=== PATIENT | female | born 1960 | race American Indian/Alaskan Native ===

== ENCOUNTER 2017-02-18 11:32 | Emergency (ER) | payer MEDICAID ==
--- NOTE | 2017-02-18 12:22 | CR ---
CLINICAL HISTORY: 56-year-old female with chest pain and shortness of breath reported to have "normal chest" May 2015. INTERPRETATION: No acute new cardiopulmonary abnormality identified in the interval since May 2015. Normal cardiac silhouette without cephalization of vascular flow, signs of alveolar edema or dependen t pleural effusion. No lung mass, hilar lymphadenopathy or focal lobar pneumonia. No atelectasis/collapse. No pneumothorax.
[2017-02-18 12:32] LABS: CHLORIDE,CL 102 mmol/L (101-111); SODIUM,NA 139 mmol/L (135-145)
[2017-02-18 12:41] VITALS: BP 122/74
--- NOTE | 2017-02-18 12:41 | EDM.PDOC ---
ED HPI GENERAL MEDICAL PROBLEM - General Chief Complaint: Chest Pain Stated Complaint: TROUBLE BREATHING, CHEST HURTS Time Seen by Provider: 02/18/17 12:05 Source of Information: Reports: Patient, RN, RN Notes Reviewed History Limitations: Reports: No Limitations - History of Present Illness INITIAL COMMENTS - FREE TEXT/NARRATIVE: Pt presents to the ER with c/o chest pain. She states the pain began last evening, and is not present at this time. She states the pain was a sternal pain , pressure, like someone was sitting on her chest. She admits to diarrhea last evening, sob with the chest pain, and chills last evening. She states when she rolled over onto her right side she would feel palpitations in her chest. She states she could possibly be feeling more depressed lately. She states she has been closing her curtains and sleeping a lot lately. She denies nausea or vomiting or recent fever. Onset: Sudden Onset Date: 02/17/17 Location: Reports: Chest Quality: Reports: Pressure Severity: Moderate Improves with: Reports: None Worsens with: Reports: None Associated Symptoms: Reports: Chest Pain, Cough, Fever/Chills, Loss of Appetite , Shortness of Breath - Related Data Allergies Allergy/AdvReac Type Severity Reaction Status Date / Time Penicillins Allergy rash and Verified 02/18/17 11:51 red all over venom-honey bee Allergy Airway Verified 05/31/15 00:53 [bee venom (honey bee)] Tightness Home Meds: Home Meds DULoxetine [Cymbalta] 60 mg PO DAILY 05/24/15 [History] Omeprazole [Omeprazole] 20 mg PO DAILY 05/24/15 [History] Oxybutynin Chloride [Ditropan Xl] 10 mg PO BEDTIME 05/24/15 [History] EPINEPHrine [Epipen] 1 dose SUBCUT ASDIRECTED PRN 05/31/15 [History] oxyCODONE HCl/Acetaminophen [Endocet 10-325 mg Tablet] 1 each PO BID 02/18/17 [ History] Past Medical History HEENT History: Reports: Impaired Vision, Other (See Below) Other HEENT History: wears glasses Cardiovascular History: Reports: High Cholesterol Respiratory History: Reports: Bronchitis, Recurrent, TB Gastrointestinal History: Reports: GERD Genitourinary History: Reports: Other (See Below) Other Genitourinary History: overactive bladder Musculoskeletal History: Reports: Arthritis, Other (See Below) Other Musculoskeletal History: scoliosis. Neck and spine pain. Neurological History: Reports: None Psychiatric History: Reports: Depression Endocrine/Metabolic History: Reports: None Immunologic History: Reports: None Oncologic (Cancer) History: Reports: None - Past Surgical History HEENT Surgical History: Reports: Other (See Below) Other HEENT Surgeries/Procedures: right ear drum Female Surgical History: Reports: Hysterectomy Social & Family History - Family History Family Medical History: Noncontributory - Tobacco Use Smoking Status *Q: Current Every Day Smoker Years of Tobacco use: 20 Packs/Tins Daily: 0.1 - Recreational Drug Use Recreational Drug Use: No ED ROS GENERAL - Review of Systems Review Of Systems: ROS reveals no pertinent complaints other than HPI. ED EXAM, GENERAL - Physical Exam Exam: See Below Exam Limited By: No Limitations General Appearance: Alert, WD/WN, No Apparent Distress Eye Exam: Bilateral Eye: EOMI, Normal Inspection Ears: Normal External Exam, Hearing Grossly Normal Nose: Normal Inspection Throat/Mouth: Normal Inspection, Normal Voice, No Airway Compromise Head: Atraumatic, Normocephalic Neck: Normal Inspection, Supple, Non-Tender, Full Range of Motion Respiratory/Chest: No Respiratory Distress, Lungs Clear, Normal Breath Sounds, No Accessory Muscle Use, Chest Non-Tender Cardiovascular: Normal Peripheral Pulses, Regular Rate, Rhythm, No Edema, No Gallop, No JVD, No Murmur, No Rub Peripheral Pulses: 2+: Radial (L), Radial (R) GI/Abdominal: Normal Bowel Sounds, Soft, Non-Tender, No Organomegaly, No Distention, No Abnormal Bruit, No Mass (Female) Exam: Deferred Rectal (Female) Exam: Deferred Back Exam: Normal Inspection, Full Range of Motion Extremities: Normal Inspection, Normal Range of Motion, Non-Tender, No Pedal Edema, Normal Capillary Refill Neurological: Alert, Oriented, Normal Cognition, No Motor/Sensory Deficits Psychiatric: Normal Affect, Normal Mood Skin Exam: Warm, Dry, Intact, Normal Color, No Rash Lymphatic: No Adenopathy EKG INTERPRETATION EKG Date: 02/18/17 Time: 11:42 Rhythm: NSR Rate (Beats/Min): 81 [place]: Normal P-Wave: Present QRS: Normal ST-T: Normal QT: Normal Comparison: No Change Course - Vital Signs Last Recorded V/S: Last Vital Signs Temp 98.4 F 02/18/17 11:37 Pulse 84 02/18/17 11:37 Resp 18 02/18/17 11:37 BP 122/74 02/18/17 11:37 Pulse Ox 97 02/18/17 11:37 - Orders/Labs/Meds Orders: Active Orders 24 hr Category Date Time Status EKG Documentation Completion [RC] URGENT Care 02/18/17 11:54 Active Labs: Laboratory Tests 02/18/17 02/18/17 02/18/17 Range/Units 12:04 12:04 12:04 WBC 11.0 H (5.0-10.0) 10^3/uL RBC 5.02 (4.2-5.4) 10^6/uL Hgb 14.6 (12.0-16.0) g/dL Hct 44.8 (37.0-47.0) % MCV 89.2 (80-100) fL MCH 29.1 (27.0-34.0) pg MCHC 32.6 L (33.0-35.0) g/dL Plt Count 245 (150-450) 10^3/uL Neut % (Auto) 64.5 (42.2-75.2) % Lymph % (Auto) 27.8 (20.5-50.1) % [place] % (Auto) 6.3 (2-8) % Eos % (Auto) 1.1 (1.0-3.0) % Baso % (Auto) 0.3 (0.0-1.0) % D-Dimer, Quantitative < 100 (0-400) ng/mL Sodium 139 (135-145) mmol/L Potassium 3.8 (3.6-5.0) mmol/L Chloride 102 (101-111) mmol/L Carbon Dioxide 26.0 (21.0-31.0) mmol/L Anion Gap 14.8 BUN 8 (7-18) mg/dL Creatinine 0.6 (0.6-1.3) mg/dL Est Cr Clr Drug Dosing 89.33 mL/min Estimated GFR (MDRD) > 60 BUN/Creatinine Ratio 13.33 Glucose 115 H (74-105) mg/dL Calcium 9.5 (8.4-10.2) mg/dl Total Bilirubin 0.9 (0.2-1.0) mg/dL AST 22 (10-42) IU/L ALT 17 (10-60) IU/L Alkaline Phosphatase 81 (42-121) IU/L Troponin I < 0.02 (0.00-0.02) ng/ml Total Protein 7.4 (6.7-8.2) g/dl Albumin 3.9 (3.2-5.5) g/dl Globulin 3.5 Albumin/Globulin Ratio 1.11 - Radiology Interpretation Free Text/Narrative:: chest xray: no acute findings See rad report Departure - Departure Time of Disposition: 13:30 Disposition: Home, Self-Care 01 Condition: Good Clinical Impression: Non-cardiac chest pain, Anxiety Depression Qualifiers: Depression Type: unspecified Qualified Code(s): F32.9 - Major depressive disorder, single episode, unspecified Instructions: Panic Attacks, [id number], Nonspecific Chest Pain, [id number] Referrals: Hemalatha Zimmerman MD [Primary Care Provider] - Forms: ED Department Discharge Additional Instructions: Follow up with Dr. Zimmerman this week. Make an appointment with the [facility] [place] for counseling with Anxiety and depression. Continue taking home medications as directed.
--- NOTE | 2017-02-21 14:03 | EKG ---
02/18/2017 - DAVID LEHMAN MIRTHA - FINDINGS: This 12-lead EKG shows a normal sinus rhythm with ventricular rate of 81. Normal axis and intervals. No acute ST segment or T-wave changes. [facility] /[id number]
== END 2017-02-18 13:35 | disposition home or self-care (01) ==
LOC: DL.ED 11:32
DX: R07.89 Other chest pain (principal); F41.9 Anxiety disorder, unspecified; F32.9 Major depressive disorder, single episode, unspecified; E78.00 Pure hypercholesterolemia, unspecified; K21.9 Gastro-esophageal reflux disease without esophagitis; F17.210 Nicotine dependence, cigarettes, uncomplicated; Z79.899 Other long term (current) drug therapy; Z88.0 Allergy status to penicillin; Z91.030 Bee allergy status
CPT/HCPCS: 36415; 71010; 80053; 84484; 85025; 85379; 93005; 99285

== ENCOUNTER 2017-08-18 13:00 | Emergency (ER) | payer MEDICAID ==
[2017-08-18 13:52] VITALS: BP 119/76
--- NOTE | 2017-08-19 07:42 | EDM.PDOC ---
Scribed by Margaret Jesus 08/19/17 0742 for Nichelle Aggarwal NP ED HPI GENERAL MEDICAL PROBLEM - General Chief Complaint: General Stated Complaint: CHEST CONGESTION [id number] Time Seen by Provider: 08/18/17 14:30 Source of Information: Reports: Patient, RN, RN Notes Reviewed History Limitations: Reports: No Limitations - History of Present Illness INITIAL COMMENTS - FREE TEXT/NARRATIVE: Patient presents to the ER with complaint of nasal congestion and headaches for 2 days. She has green sputum and nasal discharge. She has also had fever, chills , cough, congestion, headaches, pain with coughing. No nausea, vomiting, diarrhea, chest pain or shortness of breath. Onset: Gradual Duration: Getting Worse Location: Reports: Head, Chest Quality: Reports: Ache Severity: Moderate Improves with: Reports: None Worsens with: Reports: None Associated Symptoms: Reports: No Other Symptoms - Related Data Allergies Allergy/AdvReac Type Severity Reaction Status Date / Time Penicillins Allergy rash and Verified 08/18/17 13:48 red all over venom-honey bee Allergy Airway Verified 08/18/17 13:48 [bee venom (honey bee)] Tightness Home Meds: Home Meds DULoxetine [Cymbalta] 60 mg PO DAILY 05/24/15 [History] Omeprazole 20 mg PO DAILY 05/24/15 [History] Oxybutynin Chloride [Ditropan Xl] 10 mg PO BEDTIME 05/24/15 [History] EPINEPHrine [Epipen] 1 dose SUBCUT ASDIRECTED PRN 05/31/15 [History] oxyCODONE HCl/Acetaminophen [Endocet 10-325 mg Tablet] 1 each PO BID 02/18/17 [ History] Past Medical History HEENT History: Reports: Impaired Vision, Other (See Below) Other HEENT History: wears glasses Cardiovascular History: Reports: High Cholesterol Respiratory History: Reports: Bronchitis, Recurrent, TB Gastrointestinal History: Reports: GERD Genitourinary History: Reports: Other (See Below) Other Genitourinary History: overactive bladder Musculoskeletal History: Reports: Arthritis, Other (See Below) Other Musculoskeletal History: scoliosis. Neck and spine pain. Neurological History: Reports: None Psychiatric History: Reports: Depression Endocrine/Metabolic History: Reports: None Immunologic History: Reports: None Oncologic (Cancer) History: Reports: None - Infectious Disease History Infectious Disease History: Reports: Chicken Pox - Past Surgical History HEENT Surgical History: Reports: Other (See Below) Other HEENT Surgeries/Procedures: right ear drum Female Surgical History: Reports: Hysterectomy Social & Family History - Family History Family Medical History: Noncontributory - Tobacco Use Smoking Status *Q: Current Every Day Smoker Years of Tobacco use: 2 Packs/Tins Daily: 0.1 Used Tobacco, but Quit: Yes Month/Year Tobacco Last Used: today - Caffeine Use Caffeine Use: Reports: Soda - Recreational Drug Use Recreational Drug Use: No ED ROS GENERAL - Review of Systems Review Of Systems: ROS reveals no pertinent complaints other than HPI. ED EXAM, GENERAL - Physical Exam Exam: See Below Exam Limited By: No Limitations General Appearance: Alert, WD/WN, No Apparent Distress Eye Exam: Bilateral Eye: EOMI, Normal Inspection Ears: Normal External Exam, Normal Canal, Hearing Grossly Normal, Normal TMs Nose: Normal Inspection, Normal Mucosa, No Blood Throat/Mouth: Normal Inspection, Normal Lips, Normal Teeth, Normal Gums, Normal Oropharynx, Normal Voice, No Airway Compromise Head: Atraumatic, Normocephalic Neck: Normal Inspection, Supple, Non-Tender, Full Range of Motion Respiratory/Chest: No Respiratory Distress, Lungs Clear, Normal Breath Sounds, No Accessory Muscle Use, Chest Non-Tender Cardiovascular: Normal Peripheral Pulses, Regular Rate, Rhythm, No Edema, No Gallop, No JVD, No Murmur, No Rub GI/Abdominal: Normal Bowel Sounds, Soft, Non-Tender, No Organomegaly, No Distention, No Abnormal Bruit, No Mass (Female) Exam: Deferred Rectal (Female) Exam: Deferred Back Exam: Normal Inspection, Full Range of Motion, NT Extremities: Normal Inspection, Normal Range of Motion, Non-Tender, Normal Capillary Refill, No Pedal Edema Neurological: Alert Psychiatric: Normal Affect, Normal Mood Skin Exam: Warm, Dry, Intact, Normal Color, No Rash Lymphatic: Other (+1-2 submental) Course - Vital Signs Last Recorded V/S: Last Vital Signs Temp 98.2 F 08/18/17 13:50 Pulse 95 08/18/17 13:50 Resp 18 08/18/17 13:50 BP 119/76 08/18/17 13:50 Pulse Ox 97 08/18/17 13:50 Departure - Departure Time of Disposition: 14:48 Disposition: Home, Self-Care 01 Condition: Good Clinical Impression: Viral URI - Discharge Information Instructions: Viral Respiratory Infection, [id number] Forms: ED Department Discharge Additional Instructions: RX: Flonase. RX: Tessalon perles. May use saline nasal irrigation. Use over the counter Zyrtec or Claritin or other decongestants as directed. I have read and agree with the documentation that has been completed regarding this visit. By signing this record, I attest that the documentation was completed in my physical presence and is an accurate record of the encounter.
== END 2017-08-18 14:58 | disposition home or self-care (01) ==
LOC: DL.ED 13:00
DX: J06.9 Acute upper respiratory infection, unspecified (principal); F17.210 Nicotine dependence, cigarettes, uncomplicated; Z88.0 Allergy status to penicillin; Z91.030 Bee allergy status
CPT/HCPCS: 99283

== ENCOUNTER 2019-02-24 16:54 | Emergency (ER) | payer MEDICARE, MEDICAID ==
[2019-02-24 17:03] VITALS: BP 132/82; PULSE 95
--- NOTE | 2019-02-24 17:55 | EDM.PDOC ---
Scribed by Margaret Jesus 02/24/19 3321 for Doroteo Stokes MD ED HPI GENERAL MEDICAL PROBLEM - General Chief Complaint: Skin Complaint Stated Complaint: RASH Time Seen by Provider: 02/24/19 17:02 Source of Information: Reports: Patient, RN, RN Notes Reviewed History Limitations: Reports: No Limitations - History of Present Illness INITIAL COMMENTS - FREE TEXT/NARRATIVE: Patient presents to the ER by POV of a rash for 3 weeks. C/O severe itching. Granddaughter has same symptoms. Onset: Gradual Duration: Constant Location: Reports: Generalized Quality: Reports: Other (Itch. Denies pain.) Severity: Severe Improves with: Reports: None Worsens with: Reports: None Associated Symptoms: Reports: No Other Symptoms - Related Data Allergies Allergy/AdvReac Type Severity Reaction Status Date / Time Penicillins Allergy rash and Verified 02/24/19 16:58 red all over venom-honey bee Allergy Airway Verified 02/24/19 16:58 [bee venom (honey bee)] Tightness Home Meds: Home Meds DULoxetine [Cymbalta] 60 mg PO DAILY 05/24/15 [History] Omeprazole 20 mg PO DAILY 05/24/15 [History] Oxybutynin Chloride [Ditropan Xl] 10 mg PO BEDTIME 05/24/15 [History] EPINEPHrine [Epipen] 1 dose SUBCUT ASDIRECTED PRN 05/31/15 [History] Celecoxib 100 mg PO BID 01/23/19 [History] Clotrimazole/Betamethasone Dip [Lotrisone Cream] 1 applic TOP ASDIRECTED PRN 04/12 [History] Ergocalciferol (Vitamin D2) [Vitamin D2] 50 mcg PO .Saturday01/23/19 [History] Montelukast [Singulair] 10 mg PO BEDTIME 01/23/19 [History] tiZANidine [Zanaflex] 4 mg PO TID 01/23/19 [History] traZODone HCl [Trazodone HCl] 50 mg PO BEDTIME PRN 01/23/19 [History] Docusate Calcium [Stool Softener] 240 mg PO ASDIRECTED 01/29/19 [History] Ferrous Sulfate 325 mg PO DAILY 01/29/19 [History] Past Medical History HEENT History: Reports: Impaired Vision, Other (See Below) Other HEENT History: wears glasses. UPPER PARTIAL PLATE Cardiovascular History: Reports: High Cholesterol Respiratory History: Reports: Bronchitis, Recurrent, TB Other Respiratory History: TB ACTIVE 01/2019 Gastrointestinal History: Reports: Chronic Constipation, GERD Genitourinary History: Reports: Urinary Incontinence, Other (See Below) Other Genitourinary History: overactive bladder [employer]ACH[employer]ER History: Reports: , Spontaneous Musculoskeletal History: Reports: Arthritis, Back Pain, Chronic, Fracture, Other (See Below) Other Musculoskeletal History: scoliosis. Neck and spine pain. Neurological History: Reports: Head Trauma Psychiatric History: Reports: Depression Endocrine/Metabolic History: Reports: Vitamin D Deficiency Hematologic History: Reports: Blood Transfusion(s) Immunologic History: Reports: None Oncologic (Cancer) History: Reports: None Dermatologic History: Reports: None - Infectious Disease History Infectious Disease History: Reports: Chicken Pox - Past Surgical History Head Surgeries/Procedures: Reports: None HEENT Surgical History: Reports: Oral Surgery, Other (See Below) Other HEENT Surgeries/Procedures: right ear drum. skull fx and resultant surg Cardiovascular Surgical History: Reports: None Respiratory Surgical History: Reports: None GI Surgical History: Reports: None Female Surgical History: Reports: Section, Hysterectomy Endocrine Surgical History: Reports: None Neurological Surgical History: Reports: Other (See Below) Other Neurological Surgeries/Procedures: skull fx and resultant surgery Musculoskeletal Surgical History: Reports: None Oncologic Surgical History: Reports: None Dermatological Surgical History: Reports: None Social & Family History - Family History Family Medical History: Noncontributory - Caffeine Use Caffeine Use: Reports: Soda Other Caffeine Use: AVERAGE OF 1 EVERY OTHER DAY - Living Situation & Occupation Living situation: Reports: with Family ED ROS GENERAL - Review of Systems Review Of Systems: Comprehensive ROS is negative, except as noted in HPI. ED EXAM, SKIN/RASH Exam: See Below Exam Limited By: No Limitations General Appearance: Alert, WD/WN, No Apparent Distress Eye Exam: Bilateral Eye: Normal Inspection Ears: Normal External Exam Nose: Normal Inspection, Normal Mucosa, No Blood Throat/Mouth: Normal Inspection Head: Atraumatic, Normocephalic Neck: Normal Inspection, Supple, Non-Tender, Full Range of Motion. No: Lymphadenopathy (L), Lymphadenopathy (R) Respiratory/Chest: No Respiratory Distress, Lungs Clear, Normal Breath Sounds, No Accessory Muscle Use, Chest Non-Tender Cardiovascular: Regular Rate, Rhythm Extremities: Normal Range of Motion, Non-Tender, No Pedal Edema, Normal Capillary Refill Neurological: Alert, Oriented, Normal Cognition, Normal Gait, No Motor/Sensory Deficits Psychiatric: Normal Mood Skin: Warm, Dry, Rash Location, Skin: Head, Neck, Chest, Abdomen, Back, Upper Extremity, Right, Upper Extremity, Left, Lower Extremity, Right, Lower Extremity, Left Characteristics: Patchy Associated features: Crusting, Rough Course - Vital Signs Last Recorded V/S: Last Vital Signs Temp 97.3 F 02/24/19 17:00 Pulse 95 02/24/19 17:00 Resp 16 02/24/19 17:00 BP 132/82 02/24/19 17:00 Pulse Ox 98 02/24/19 17:00 Departure - Departure Time of Disposition: 17:54 Disposition: Home, Self-Care 01 Condition: Good Clinical Impression: Scabies - Discharge Information *PRESCRIPTION DRUG MONITORING PROGRAM REVIEWED*: No *COPY OF PRESCRIPTION DRUG MONITORING REPORT IN PATIENT ISAIAS: No Instructions: Scabies, Adult Forms: ED Department Discharge Additional Instructions: Rx: Elimite Cream 5% Follow up in clinic in 5 to 7 days if not improving. I have read and agree with the documentation that has been completed regarding this visit. By signing this record, I attest that the documentation was completed in my physical presence and is an accurate record of the encounter.
== END 2019-02-24 17:50 | disposition home or self-care (01) ==
LOC: DL.ED 16:54
DX: B86 Scabies (principal); E78.00 Pure hypercholesterolemia, unspecified; K21.9 Gastro-esophageal reflux disease without esophagitis; Z88.0 Allergy status to penicillin; Z91.030 Bee allergy status; Z79.899 Other long term (current) drug therapy
CPT/HCPCS: 99282

== ENCOUNTER 2019-05-18 12:46 | Emergency (ER) | payer MEDICARE, MEDICAID ==
[2019-05-18 13:25] VITALS: BP 116/67; PULSE 101
--- NOTE | 2019-05-18 17:47 | EDM.PDOC ---
<Matteo Roman - Last Filed: 05/18/19 17:37> ED HPI GENERAL MEDICAL PROBLEM - General Chief Complaint: General Stated Complaint: COLD COUGH FEVER KIDNEYS HURT Time Seen by Provider: 05/18/19 17:37 Source of Information: Reports: Patient, RN, RN Notes Reviewed History Limitations: Reports: No Limitations - History of Present Illness INITIAL COMMENTS - FREE TEXT/NARRATIVE: Patient reports cough and fever since last Saturday. States fever last night was 103 and she took tyelnol. Temp here 100.4. C/O chest pain with cough, generalized body aches, cough with no mucous production, back pain, kidney pain. Onset Date: 05/15/19 Duration: Constant Location: Reports: Head, Generalized Quality: Reports: Ache Severity: Mild Improves with: Reports: None Worsens with: Reports: None Treatments PHYSICIAN SPECIALIST: Reports: Acetaminophen Generalized Pain Score (Numeric/FACES): 9 - Related Data Allergies Allergy/AdvReac Type Severity Reaction Status Date / Time Penicillins Allergy rash and Verified 05/18/19 13:30 red all over venom-honey bee Allergy Airway Verified 05/18/19 13:30 [bee venom (honey bee)] Tightness Home Meds: Home Meds DULoxetine [Cymbalta] 60 mg PO DAILY 05/24/15 [History] Omeprazole 20 mg PO BID 05/24/15 [History] Oxybutynin Chloride [Ditropan Xl] 10 mg PO BEDTIME 05/24/15 [History] EPINEPHrine [Epipen] 1 dose SUBCUT ASDIRECTED PRN 05/31/15 [History] Celecoxib 100 mg PO BID 01/23/19 [History] Clotrimazole/Betamethasone Dip [Lotrisone Cream] 1 applic TOP ASDIRECTED PRN 04/12 [History] Ergocalciferol (Vitamin D2) [Vitamin D2] 50 mcg PO .Saturday01/23/19 [History] Montelukast [Singulair] 10 mg PO BEDTIME 01/23/19 [History] tiZANidine [Zanaflex] 4 mg PO TID 01/23/19 [History] traZODone HCl [Trazodone HCl] 50 mg PO BEDTIME PRN 01/23/19 [History] Docusate Calcium [Stool Softener] 240 mg PO ASDIRECTED 01/29/19 [History] Past Medical History HEENT History: Reports: Impaired Vision, Other (See Below) Other HEENT History: wears glasses. 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 Neck and spine pain. Neurological History: Reports: Head Trauma Psychiatric History: Reports: Depression Endocrine/Metabolic History: Reports: Vitamin D Deficiency Hematologic History: Reports: Blood Transfusion(s) Immunologic History: Reports: None Oncologic (Cancer) History: Reports: None Dermatologic History: Reports: None - Infectious Disease History Infectious Disease History: Reports: TB - Past Surgical History Head Surgeries/Procedures: Reports: None HEENT Surgical History: Reports: Oral Surgery, Other (See Below) Other HEENT Surgeries/Procedures: right ear drum. skull fx and resultant surg Cardiovascular Surgical History: Reports: None Respiratory Surgical History: Reports: None GI Surgical History: Reports: None Female Surgical History: Reports: Section, Hysterectomy Endocrine Surgical History: Reports: None Neurological Surgical History: Reports: Other (See Below) Other Neurological Surgeries/Procedures: skull fx and resultant surgery Musculoskeletal Surgical History: Reports: None Oncologic Surgical History: Reports: None Dermatological Surgical History: Reports: None Social & Family History - Family History Family Medical History: Noncontributory - Tobacco Use Smoking Status *Q: Current Some Day Smoker Years of Tobacco use: 3 Packs/Tins Daily: 0.2 - Caffeine Use Caffeine Use: Reports: Soda Other Caffeine Use: AVERAGE OF 1 EVERY OTHER DAY - Recreational Drug Use Recreational Drug Use: No - Living Situation & Occupation Living situation: Reports: with Family ED ROS GENERAL - Review of Systems Review Of Systems: Comprehensive ROS is negative, except as noted in HPI. ED EXAM, GENERAL - Physical Exam Exam: See Below Exam Limited By: No Limitations General Appearance: Alert, WD/WN, No Apparent Distress Ears: Normal External Exam, Normal Canal, Hearing Grossly Normal, Normal TMs Ear Exam: Bilateral Ear: Auricle Normal, Canal Normal, TM normal Nose: Normal Inspection, Normal Mucosa, No Blood Throat/Mouth: Normal Inspection, Normal Lips, Normal Teeth, Normal Gums, Normal Oropharynx, Normal Voice, No Airway Compromise Head: Atraumatic, Normocephalic Neck: Normal Inspection, Supple, Non-Tender, Full Range of Motion Respiratory/Chest: No Respiratory Distress, Lungs Clear, Normal Breath Sounds, No Accessory Muscle Use, Chest Non-Tender Cardiovascular: Normal Peripheral Pulses, Regular Rate, Rhythm, No Edema, No Gallop, No JVD, No Murmur, No Rub Course - Vital Signs Last Recorded V/S: Last Vital Signs Temp 38.0 C 05/18/19 13:22 Pulse 101 H 05/18/19 13:22 Resp 20 05/18/19 13:22 BP 116/67 05/18/19 13:22 Pulse Ox 99 05/18/19 13:22 - Orders/Labs/Meds Labs: Laboratory Tests 05/18/19 Range/Units 13:53 Urine Color Yellow (YELLOW) Urine Appearance Slightly cloudy (CLEAR) Urine pH 6.5 (5.0-9.0) Ur Specific [place] 1.020 (1.005-1.030) Urine Protein Trace H (NEGATIVE) Urine Glucose (UA) Negative (NEGATIVE) Urine Ketones Negative (NEGATIVE) Urine Occult Blood Negative (NEGATIVE) Urine Nitrite Negative (NEGATIVE) Urine Bilirubin Negative (NEGATIVE) Urine Urobilinogen 1.0 (0.2-1.0) mg/dL Ur Leukocyte Esterase Negative (NEGATIVE) Urine RBC Not seen /HPF Urine WBC Not seen (0-5/HPF) /HPF Ur Epithelial Cells Rare (NOT SEEN) /HPF Urine Bacteria Not seen (0-FEW/HPF) /HPF Urine Mucus Few H (NOT SEEN) /LPF Departure - Departure Time of Disposition: 18:00 Disposition: Home, Self-Care 01 Condition: Good Clinical Impression: Influenza - Discharge Information *PRESCRIPTION DRUG MONITORING PROGRAM REVIEWED*: Not Applicable *COPY OF PRESCRIPTION DRUG MONITORING REPORT IN PATIENT ISAIAS: Not Applicable Instructions: Influenza, Adult, [id number], Pharyngitis, [id number] Forms: ED Department Discharge Additional Instructions: Rx: Tamiflu 75 mg twice daily for 5 days Influenza symptoms will take 7-10 days to resolve. Even though you tested negative for influenza, begin taking the medication Tamiflu for influenza symptoms to decrease length of illness and symptom severity. Continue to drink plenty of fluids to maintain hydration and rest when possible. Return to ER or clinic if symptoms worsen or do not improve after 10 days. Sepsis Event Note - Evaluation Sepsis Screening Result: No Definite Risk - Focused Exam Vital Signs: Vital Signs Temp Pulse Resp BP Pulse Ox 05/18/19 13:22 38.0 C 101 H 20 116/67 99 Date Exam was Performed: 05/18/19 Time Exam was Performed: 17:37 <Tino Guardado - Last Filed: 05/18/19 17:57> Course - Re-Assessments/Exams Free Text/Narrative Re-Assessment/Exam: 05/18/19 17:57 I have examined the patient. I have discussed findings and treatment plan with the PA student. I agree with the assessment and plan in the following students note. Sepsis Event Note - Focused Exam Date Exam was Performed: 05/18/19 Time Exam was Performed: 17:57
== END 2019-05-18 18:05 | disposition home or self-care (01) ==
LOC: DL.ED 12:46
DX: J11.1 Influenza due to unidentified influenza virus with other respiratory manifestations (principal); F17.210 Nicotine dependence, cigarettes, uncomplicated; K21.9 Gastro-esophageal reflux disease without esophagitis; F32.9 Major depressive disorder, single episode, unspecified; Z79.899 Other long term (current) drug therapy; Z88.0 Allergy status to penicillin; Z91.030 Bee allergy status
CPT/HCPCS: 81001; 87804; 99283

== ENCOUNTER 2019-09-28 15:21 | Emergency (ER) | payer MEDICARE, MEDICAID | END 2019-09-28 16:40 | disposition left against medical advice (07) | LOC: DL.ED 15:21 | DX: Z53.21 Procedure and treatment not carried out due to patient leaving prior to being seen by health care provider (principal) ==

== ENCOUNTER 2021-02-27 17:15 | Emergency (ER) | payer MEDICARE, MEDICAID ==
[2021-02-27] MEDS ORDERED: Sodium Chloride 0.9% 10 ML Syringe FLUSH PRN (18:11)
[2021-02-27] MEDS ORDERED: Famotidine 20 MG/2 ML SDV IVPUSH ONE (18:11)
[2021-02-27] MEDS ORDERED: GI Cocktail Oral Solution 30 ML PO ONE (18:11)
[2021-02-27] MEDS ORDERED: Ondansetron 4 MG/2 ML SDV IV ONE (18:11)
[2021-02-27] MEDS ORDERED: Sodium Chloride 0.9% 1,000 ML IV ONE (18:23)
[2021-02-27 18:56] LABS: ANION GAP 12.9 mEq/L (7-13); CHLORIDE,CL 103 mmol/L (98-107); SODIUM,NA 140 mmol/L (136-145)
--- NOTE | 2021-02-27 18:59 | EDM.PDOC ---
<Doroteo Stokes - Last Filed: 02/27/21 18:53> ED HPI GENERAL MEDICAL PROBLEM - General Chief Complaint: Abdominal Pain Stated Complaint: STOMACH PAIN Time Seen by Provider: 02/27/21 18:40 Source of Information: Reports: Patient, Old Records, RN, RN Notes Reviewed History Limitations: Reports: No Limitations - History of Present Illness INITIAL COMMENTS - FREE TEXT/NARRATIVE: Pt presents to ER by POV with c/o onset of upper abdominal pain with nausea at 1100HRS today. The pain radiates straight through to her back. Symptoms began a couple of hours after eating sausage and potatoes. Denies fever, vomiting, diarrhea, constipation, or dysuria. Hx of GERD. Admits to 30lb unintended wt loss over the last 6 months. Onset: Today, Gradual Onset Date: 02/27/21 Onset Time: 11:00 Duration: Constant Location: Reports: Abdomen Quality: Reports: Ache Severity: Severe Improves with: Reports: None Worsens with: Reports: Eating Associated Symptoms: Reports: No Other Symptoms Abdomen Pain Score (Numeric/FACES): 10 - Related Data Allergies Allergy/AdvReac Type Severity Reaction Status Date / Time Penicillins Allergy rash and Verified 02/27/21 18:32 red all over venom-honey bee Allergy Airway Verified 02/27/21 18:32 [bee venom (honey bee)] Tightness Home Meds: Home Meds DULoxetine HCl [Drizalma Sprinkle] 60 mg PO ASDIRECTED 02/27/21 [History] DULoxetine HCl [Duloxetine HCl] 60 mg PO ASDIRECTED 02/27/21 [History] Docusate Sodium [Stool Softener] 50 mg PO ASDIRECTED 02/27/21 [History] Ferrous Sulfate 325 mg PO ASDIRECTED 02/27/21 [History] Montelukast Sodium 10 mg PO ASDIRECTED 02/27/21 [History] Omeprazole 20 mg PO BID 02/27/21 [History] Oxybutynin Chloride [Ditropan Xl] 10 mg PO ASDIRECTED 02/27/21 [History] tiZANidine HCl [Tizanidine HCl] 4 mg PO TID 02/27/21 [History] Past Medical History HEENT History: Reports: Impaired Vision, Other (See Below) Other HEENT History: wears glasses. 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 Neck and spine pain. Neurological History: Reports: Head Trauma Psychiatric History: Reports: Depression Endocrine/Metabolic History: Reports: Vitamin D Deficiency Hematologic History: Reports: Blood Transfusion(s) Immunologic History: Reports: None Oncologic (Cancer) History: Reports: None Dermatologic History: Reports: None - Infectious Disease History Infectious Disease History: Reports: Chicken Pox - Past Surgical History Head Surgeries/Procedures: Reports: None HEENT Surgical History: Reports: Oral Surgery, Other (See Below) Other HEENT Surgeries/Procedures: right ear drum. skull fx and resultant surg Cardiovascular Surgical History: Reports: None Respiratory Surgical History: Reports: None GI Surgical History: Reports: None Female Surgical History: Reports: Section, Hysterectomy Endocrine Surgical History: Reports: None Neurological Surgical History: Reports: Other (See Below) Other Neurological Surgeries/Procedures: skull fx and resultant surgery Musculoskeletal Surgical History: Reports: None Oncologic Surgical History: Reports: None Dermatological Surgical History: Reports: None Social & Family History - Family History Family Medical History: No Pertinent Family History - Tobacco Use Tobacco Use Status *Q: Current Every Day Tobacco User Years of Tobacco use: 1 Packs/Tins Daily: 1 - Caffeine Use Caffeine Use: Reports: Soda Other Caffeine Use: AVERAGE OF 1 EVERY OTHER DAY - Recreational Drug Use Recreational Drug Use: No - Living Situation & Occupation Living situation: Reports: with Family ED ROS GENERAL - Review of Systems Review Of Systems: Comprehensive ROS is negative, except as noted in HPI. ED EXAM, GI/ABD - Physical Exam Exam: See Below Exam Limited By: No Limitations General Appearance: Alert, WD/WN, No Apparent Distress Eyes: Bilateral: Normal Appearance (No scleral icterus) Nose: Normal Inspection Throat/Mouth: Normal Lips, Normal Voice, No Airway Compromise Head: Atraumatic, Normocephalic Neck: Normal Inspection Respiratory/Chest: No Respiratory Distress, Lungs Clear, Normal Breath Sounds, No Accessory Muscle Use, Chest Non-Tender Cardiovascular: Regular Rate, Rhythm, No Edema GI/Abdominal Exam: Normal Bowel Sounds, Soft, Tender (Epigastric and periumbilical tenderness without peritoneal signs). No: Guarding, Rigid, Rebound Back Exam: Normal Inspection Extremities: Normal Inspection Neurological: Alert, Oriented, No Motor/Sensory Deficits Psychiatric: Normal Mood Skin Exam: Warm, Dry, Intact, Normal Color, No Rash Course - Re-Assessments/Exams Free Text/Narrative Re-Assessment/Exam: 02/27/21 18:58 Care of pt transferred to [facility] at shift change. Departure - Departure Disposition: DC/Tfer to [facility] 02 Clinical Impression: Appendicitis Qualifiers: Appendicitis type: acute appendicitis Acute appendicitis type: with localized peritonitis Appendicitis gangrene presence: unspecified whether gangrene present Appendicitis perforation presence: without perforation Appendicitis abscess presence: without abscess Qualified Code(s): K35.30 - Acute appendicitis with localized peritonitis, without perforation or gangrene - Discharge Information Forms: ED Department Discharge Sepsis Event Note (ED) - Evaluation Sepsis Screening Result: No Definite Risk <Buffy Temple - Last Filed: 02/27/21 21:57> Course - Vital Signs Last Recorded V/S: Last Vital Signs Temp 99.0 F 02/27/21 20:03 Pulse 82 02/27/21 20:30 Resp 16 02/27/21 20:03 BP 135/72 02/27/21 20:30 Pulse Ox 99 02/27/21 20:30 - Orders/Labs/Meds Orders: Active Orders 24 hr Category Date Time Status Peripheral IV Care [RC] . DIRECTED Care 02/27/21 18:11 Active Levofloxacin/Dextrose 5%-Water [Levaquin in D5W 750 MG/ Med 02/27/21 20:50 Active 150 ML] 750 mg Premix Bag 1 bag IV ONETIME Sodium Chloride 0.9% [Saline Flush] Med 02/27/21 18:11 Active 10 ml FLUSH ASDIRECTED PRN Peripheral IV Insertion Adult [OM.PC] Stat Oth 02/27/21 18:11 Ordered Medication Orders Levofloxacin/Dextrose 750 mg/ (Premix) 150 mls @ 100 mls/hr IV ONETIME ONE Stop: 02/27/21 22:19 Last Admin: 02/27/21 21:06 Dose: 100 mls/hr Documented by: SHIN Sodium Chloride (Sodium Chloride 0.9% 10 Ml Syringe) 10 ml FLUSH ASDIRECTED PRN PRN Reason: Keep Vein Open Last Admin: 02/27/21 18:42 Dose: 10 ml Documented by: [email or web address] Labs: Laboratory Tests 02/27/21 02/27/21 02/27/21 Range/Units 18:18 18:18 18:18 WBC 17.1 H (5.0-10.0) 10^3/uL RBC 5.02 (4.2-5.4) 10^6/uL Hgb 14.8 (12.0-16.0) g/dL Hct 44.9 (37.0-47.0) % MCV 89.4 (80-100) fL MCH 29.5 (27.0-34.0) pg MCHC 33.0 (33.0-35.0) g/dL Plt Count 248 (150-450) 10^3/uL Neut % (Auto) 85.2 H (42.2-75.2) % Lymph % (Auto) 8.6 L (20.5-50.1) % [place] % (Auto) 5.7 (2-8) % Eos % (Auto) 0.4 L (1.0-3.0) % Baso % (Auto) 0.1 (0.0-1.0) % Sodium 140 (136-145) mmol/L Potassium 3.9 (3.5-5.1) mmol/L Chloride 103 (98-107) mmol/L Carbon Dioxide 28 (21-32) mmol/L Anion Gap 12.9 (7-13) mEq/L BUN 11 (7-18) mg/dL Creatinine 0.79 (0.55-1.02) mg/dL Est Cr Clr Drug Dosing 64.58 mL/min Estimated GFR (MDRD) > 60 BUN/Creatinine Ratio 13.9 (No establ ref range) Glucose 144 H (70-99) mg/dL Lactic Acid 1.2 (0.4-2.0) mmol/L Calcium 9.1 (8.5-10.1) mg/dL Total Bilirubin 0.5 (0.2-1.0) mg/dL AST 15 (15-37) U/L ALT 25 (14-59) U/L Alkaline Phosphatase 112 (46-116) U/L Troponin I High Sens 6 (<=51) pg/mL Total Protein 8.0 (6.4-8.2) g/dL Albumin 3.9 (3.4-5.0) g/dL Globulin 4.1 Albumin/Globulin Ratio 1.0 Amylase 81 (25-115) U/L Lipase 98 (73-393) U/L Ethyl Alcohol < 3 (0) mg/dL SARS-CoV-2 RNA (PARIS) (NEGATIVE) 02/27/21 Range/Units 20:27 WBC (5.0-10.0) 10^3/uL RBC (4.2-5.4) 10^6/uL Hgb (12.0-16.0) g/dL Hct (37.0-47.0) % MCV (80-100) fL MCH (27.0-34.0) pg MCHC (33.0-35.0) g/dL Plt Count (150-450) 10^3/uL Neut % (Auto) (42.2-75.2) % Lymph % (Auto) (20.5-50.1) % [place] % (Auto) (2-8) % Eos % (Auto) (1.0-3.0) % Baso % (Auto) (0.0-1.0) % Sodium (136-145) mmol/L Potassium (3.5-5.1) mmol/L Chloride (98-107) mmol/L Carbon Dioxide (21-32) mmol/L Anion Gap (7-13) mEq/L BUN (7-18) mg/dL Creatinine (0.55-1.02) mg/dL Est Cr Clr Drug Dosing mL/min Estimated GFR (MDRD) BUN/Creatinine Ratio (No establ ref range) Glucose (70-99) mg/dL Lactic Acid (0.4-2.0) mmol/L Calcium (8.5-10.1) mg/dL Total Bilirubin (0.2-1.0) mg/dL AST (15-37) U/L ALT (14-59) U/L Alkaline Phosphatase (46-116) U/L Troponin I High Sens (<=51) pg/mL Total Protein (6.4-8.2) g/dL Albumin (3.4-5.0) g/dL Globulin Albumin/Globulin Ratio Amylase (25-115) U/L Lipase (73-393) U/L Ethyl Alcohol (0) mg/dL SARS-CoV-2 RNA (PARIS) Negative (NEGATIVE) Meds: Medications Generic Name Dose Route Start Last Admin Trade Name Freq PRN Reason Stop Dose Admin Levofloxacin/Dextrose 750 mg/ 150 mls @ 100 mls/hr 02/27/21 20:50 02/27/21 21:06 Premix IV 02/27/21 22:19 100 mls/hr ONETIME ONE Administration Sodium Chloride 10 ml 02/27/21 18:11 02/27/21 18:42 Sodium Chloride 0.9% 10 Ml Syringe FLUSH 10 ml ASDIRECTED PRN Administration Keep Vein Open Discontinued Medications Generic Name Dose Route Start Last Admin Trade Name Raminq PRN Reason Stop Dose Admin Al Hydroxide/Mg Hydroxide 30 ml 02/27/21 18:11 02/27/21 19:03 Gi Cocktail Oral Solution 30 Ml PO 02/27/21 18:12 30 ml ONETIME ONE Administration Famotidine 20 mg 02/27/21 18:11 02/27/21 18:37 Famotidine 20 Mg/2 Ml Sdv IVPUSH 02/27/21 18:12 20 mg ONETIME ONE Administration Hydromorphone HCl 1 mg 02/27/21 21:05 02/27/21 21:12 Hydromorphone 1 Mg/Ml Syringe IVPUSH 02/27/21 21:06 1 mg ONETIME ONE Administration Sodium Chloride 1,000 mls @ 999 mls/hr 02/27/21 18:23 02/27/21 18:27 Normal Saline IV 02/27/21 19:23 999 mls/hr .BOLUS ONE Administration Metronidazole 500 mg/ Premix 100 mls @ 100 mls/hr 02/27/21 20:50 02/27/21 21:07 IV 02/27/21 21:49 100 mls/hr ONETIME ONE Administration Iopamidol 100 ml 02/27/21 19:09 02/27/21 19:44 Iopamidol 612 Mg/Ml 100 Ml Bottle IVPUSH 02/27/21 19:10 75 ml ONETIME ONE Administration Ondansetron HCl 4 mg 02/27/21 18:11 02/27/21 18:36 Ondansetron 4 Mg/2 Ml Sdv IV 02/27/21 18:12 4 mg ONETIME ONE Administration Ondansetron HCl 4 mg 02/27/21 21:05 02/27/21 21:12 Ondansetron 4 Mg/2 Ml Sdv IVPUSH 02/27/21 21:06 4 mg ONETIME ONE Administration - Re-Assessments/Exams Free Text/Narrative Re-Assessment/Exam: [facility] accepting patient , tx via [facility] 02/27/21 20:59 Departure - Departure Time of Disposition: 21:20 Condition: Good - Discharge Information *PRESCRIPTION DRUG MONITORING PROGRAM REVIEWED*: No *COPY OF PRESCRIPTION DRUG MONITORING REPORT IN PATIENT ISAIAS: No Sepsis Event Note (ED) - Focused Exam Vital Signs: Vital Signs Temp Pulse Resp BP Pulse Ox 02/27/21 20:30 82 135/72 99 02/27/21 20:03 99.0 F 82 16 137/72 100 02/27/21 19:05 99.1 F 80 18 152/73 H 100 02/27/21 18:29 97.1 F 65 14 145/74 H 99 - My Orders Last 24 Hours: My Active Orders 02/27/21 20:50 Levofloxacin/Dextrose 5%-Water [Levaquin in D5W 750 MG/150 ML] 750 mg Premix Bag 1 bag IV ONETIME - Assessment/Plan Last 24 Hours: My Active Orders 02/27/21 20:50 Levofloxacin/Dextrose 5%-Water [Levaquin in D5W 750 MG/150 ML] 750 mg Premix Bag 1 bag IV ONETIME
[2021-02-27] MEDS ORDERED: Iopamidol 612 MG/ML 100 ML Bottle IVPUSH ONE (19:09)
[2021-02-27 20:04] VITALS: PULSE 82
--- NOTE | 2021-02-27 20:25 | CT ---
PROCEDURE INFORMATION: Exam: CT Abdomen And Pelvis With Contrast Exam date and time: 02/27/2021 7:42 PM Age: 60 years old Clinical indication: Abdominal pain; Localized; Upper; Prior surgery; Surgery date: 6+ months; Surgery type: Hysterectomy; Additional info: Upper abdominal pain wbc 17,000 TECHNIQUE: Imaging protocol: Computed tomography of the abdomen and pelvis with contrast. Radiation optimization: All CT scans at this facility use at least one of these dose optimization techniques: automated exposure control; mA and/or kV adjustment per patient size (includes targeted exams where dose is matched to clinical indication); or iterative reconstruction. Contrast material: ISOVUE 300; Contrast volume: 75 ml; Contrast route: INTRAVENOUS (IV); COMPARISON: No relevant prior studies available. FINDINGS: Lungs: The lung bases are clear. Liver: Normal. Gallbladder and bile ducts: Normal. No ductal dilation. Pancreas: Normal. No ductal dilation. Spleen: Normal. Adrenal glands: Normal. Kidneys and ureters: The right kidney is normal. Subcentimeter hypoattenuating lesion of the left kidney is too small to further characterize but most likely represents a benign cyst. There are no hydronephrosis or perinephric fluid collections involving either kidney. There is no hydroureter. Stomach and bowel: The stomach and duodenum are normal. No small bowel dilation, wall thickening, or derangement in mucosal enhancement. The colon is unremarkable. Appendix: The appendix is prominent size, 10 mm in diameter, and has mild periappendiceal fat stranding. No focal fluid or adjacent free air to suggest rupture. Intraperitoneal space: No ascites. No pneumoperitoneum. Vasculature: The abdominal aorta is normal in caliber and without evidence of dissection. Lymph nodes: No retroperitoneal or mesenteric lymphadenopathy. No yana hepatis lymphadenopathy. Urinary bladder: Bladder is adequately distended. No focal wall thickening. Right posterolateral extension of the bladder in the pelvis is compatible with pelvic floor dysfunction. Reproductive: The uterus is absent. No concerning adnexal mass or cyst. Bones/joints: No acute osseous abnormalities. Soft tissues: Unremarkable. IMPRESSION: Findings are compatible with acute appendicitis. No evidence of complication COMMENTS: 1. Consistent with the [employer]'s Incidental Findings Committee white paper (J Am George Radiol 2018): Any incidental renal lesion less than 1 cm or classified as too small to characterize, or any incidental cystic renal lesion characterized as simple-appearing, is likely benign. No follow-up imaging is recommended for these lesions per consensus recommendations based on imaging criteria.
[2021-02-27 20:40] VITALS: BP 135/72
[2021-02-27] MEDS ORDERED: metroNIDAZOLE/Normal Saline 500 MG in Premix Bag 100 BAG IV ONE (20:50)
[2021-02-27] MEDS ORDERED: Levofloxacin/Dextrose 5%-Water 750 MG in Premix Bag 1 BAG IV ONE (20:50)
[2021-02-27] MEDS ORDERED: HYDROmorphone 1 MG/ML Syringe IVPUSH ONE (21:05)
[2021-02-27] MEDS ORDERED: Ondansetron 4 MG/2 ML SDV IVPUSH ONE (21:05)
== END 2021-02-27 21:22 ==
LOC: DL.ED 17:15
DX: K35.30 Acute appendicitis with localized peritonitis, without perforation or gangrene (principal); K21.9 Gastro-esophageal reflux disease without esophagitis; Z91.030 Bee allergy status; Z88.0 Allergy status to penicillin; Z79.899 Other long term (current) drug therapy; Z72.0 Tobacco use; Z20.822 Contact with and (suspected) exposure to COVID-19
CPT/HCPCS: 36415; 74177; 80053; 80307; 82150; 83605; 83690; 84484; 85025; 96365; 96375; 96376; 99285; A9270; J1170; J1956; J2405; J3490; J7030; Q9967; U0002

== ENCOUNTER 2022-09-11 10:31 | Emergency (ER) | payer MEDICARE, MEDICAID ==
[2022-09-11] MEDS ORDERED: Sodium Chloride 0.9% 10 ML Syringe FLUSH PRN (10:54)
[2022-09-11 11:06] LABS: BASOPHILS PERCENT AUTO 0.2 % (0.0-1.0); EOSINOPHILS PERCENT AUTO 0.9 % (1.0-3.0); HEMATOCRIT 43.3 % (37.0-47.0); HEMOGLOBIN 14.4 g/dL (12.0-16.0); LYMPHOCYTES PERCENT AUTO 23.1 % (20.5-50.1); MEAN CORPUSCULAR HEMOGLOBIN 30.1 pg (27.0-34.0); MEAN CORPUSCULAR HGB CONC 33.3 g/dL (33.0-35.0); MEAN CORPUSCULAR VOLUME 90.4 fL (80-100); MONOCYTES PERCENT AUTO 6.6 % (2-8); NEUTROPHILS PERCENT AUTO 69.2 % (42.2-75.2); PLATELET COUNT,PLT 267 10^3/uL (150-450); RED BLOOD CELL COUNT 4.79 10^6/uL (4.2-5.4); WHITE BLOOD CELL COUNT,WBC 10.7 10^3/uL (5.0-10.0)
[2022-09-11] MEDS ORDERED: Ondansetron 4 MG/2 ML SDV IVPUSH ONE (11:14)
[2022-09-11] MEDS ORDERED: Sodium Chloride 0.9% 1,000 ML IV ONE (11:14)
[2022-09-11 11:15] VITALS: BP 164/66; PULSE 52
[2022-09-11 11:16] LABS: AMPHETAMINES,URINE NEGATIVE (NEGATIVE); BARBITURATES,URINE NEGATIVE (NEGATIVE); BENZODIAZEPINE,URINE NEGATIVE (NEGATIVE); MDMA (ECSTASY), URINE NEGATIVE (NEGATIVE); METHADONE,URINE NEGATIVE (NEGATIVE); METHAMPHETAMINES,URINE NEGATIVE (NEGATIVE); OPIATES,URINE NEGATIVE (NEGATIVE); OXYCODONE,URINE NEGATIVE (NEGATIVE); PHENCYCLIDINE,URINE NEGATIVE (NEGATIVE); TCA,URINE NEGATIVE (NEGATIVE)
[2022-09-11 11:17] LABS: INR 0.9 (0.9-1.2); PROTHROMBIN TIME 9.3 SEC (9.0-12.0); PTT,PARTIAL THROMBOPLSTIN TIME 25.4 SEC (22.0-34.0)
[2022-09-11 11:20] LABS: ALANINE AMINOTRANSFERASE,ALT 27 U/L (14-59); ALBUMIN 3.9 g/dL (3.4-5.0); ALKALINE PHOSPHATASE 103 U/L (46-116); AMYLASE 63 U/L (25-115); ANION GAP 14.3 mEq/L (7-13); ASPARTATE AMNIOTRANSFERASE,AST 17 U/L (15-37); BILIRUBIN TOTAL 0.7 mg/dL (0.2-1.0); BLOOD UREA NITROGEN,BUN 14 mg/dL (7-18); BUN/CREATININE RATIO 18.7 (No establ ref range); CALCIUM 9.1 mg/dL (8.5-10.1); CARBON DIOXIDE,CO2 25 mmol/L (21-32); CHLORIDE,CL 103 mmol/L (98-107); CREATININE 0.75 mg/dL (0.55-1.02); EST CRCL DRUG DOSING (CG) 67.16 mL/min; GLUCOSE RANDOM 142 mg/dL (70-99); LACTIC ACID 1.9 mmol/L (0.4-2.0); LIPASE 96 U/L (73-393); MAGNESIUM 2.1 mg/dL (1.8-2.4); POTASSIUM,K 3.3 mmol/L (3.5-5.1); PROTEIN TOTAL,TP 7.9 g/dL (6.4-8.2); SODIUM,NA 139 mmol/L (136-145)
[2022-09-11 11:22] LABS: C-REACTIVE PROTEIN < 0.2 mg/dL (0.0-0.9); ESTIMATED GFR 90 mL/min (>=60); ETHANOL BLOOD MEDICAL < 3 mg/dL (0)
[2022-09-11] MEDS ORDERED: GI Cocktail Oral Solution 30 ML PO ONE (11:45)
[2022-09-11 12:05] LABS: APPEARANCE,URINE CLEAR (CLEAR); BILIRUBIN,URINE NEGATIVE (NEGATIVE); COLOR,URINE YELLOW (YELLOW); GLUCOSE,URINE NEGATIVE (NEGATIVE); KETONES,URINE NEGATIVE (NEGATIVE); LEUKOCYTE ESTERASE,URINE NEGATIVE (NEGATIVE); NITRITE,URINE NEGATIVE (NEGATIVE); OCCULT BLOOD,URINE NEGATIVE (NEGATIVE); PH,URINE 8.5 (5.0-9.0); PROTEIN,URINE TRACE (NEGATIVE)
[2022-09-11] MEDS ORDERED: fentaNYL 100 MCG/2 ML SDV IVPUSH ONE (12:05)
[2022-09-11] MEDS ORDERED: Iopamidol 612 MG/ML 100 ML Bottle IVPUSH ONE (12:06)
[2022-09-11 12:17] LABS: BACTERIA,URINE FEW /HPF (0-FEW/HPF); EPITHELIAL CELLS,URINE FEW /HPF (NOT SEEN); RBC,URINE 0-5 /HPF (0-5); WBC,URINE 0-5 /HPF (0-5/HPF)
[2022-09-11 12:18] LABS: MUCUS,URINE MODERATE /LPF (NOT SEEN)
[2022-09-11] MEDS ORDERED: HYDROmorphone 1 MG/ML Syringe IVPUSH ONE (13:17)
[2022-09-11] MEDS ORDERED: Metoclopramide 10 MG/2 ML SDV IVPUSH ONE (13:17)
== END 2022-09-11 15:02 | disposition home or self-care (01) ==
LOC: DL.ED 10:31
DX: K80.20 Calculus of gallbladder without cholecystitis without obstruction (principal); R11.2 Nausea with vomiting, unspecified; E78.00 Pure hypercholesterolemia, unspecified; K21.9 Gastro-esophageal reflux disease without esophagitis; Z88.0 Allergy status to penicillin; Z91.030 Bee allergy status; Z79.899 Other long term (current) drug therapy
CPT/HCPCS: 36415; 71045; 74177; 76705; 80053; 80305; 80307; 81001; 82150; 83605; 83690; 83735; 84484; 85025; 85610; 85730; 86140; 93005; 93010; 96361; 96374; 96375; 99284; A9270; J1170; J2405; J2765; J3010; J7030; Q9967; J3490

== ENCOUNTER 2024-05-30 21:59 | Emergency (ER) | payer MEDICARE, MEDICAID ==
[2024-05-30 22:43] LABS: BASOPHILS PERCENT AUTO 0.3 % (0.0-1.0); EOSINOPHILS PERCENT AUTO 2.1 % (1.0-3.0); HEMOGLOBIN 14.3 g/dL (12.0-16.0); MEAN CORPUSCULAR HEMOGLOBIN 29.4 pg (27.0-34.0); MEAN CORPUSCULAR HGB CONC 31.8 g/dL (33.0-35.0); MEAN CORPUSCULAR VOLUME 92.4 fL (80-100); MONOCYTES PERCENT AUTO 9.8 % (2-8); NEUTROPHILS PERCENT AUTO 48.8 % (42.2-75.2); PLATELET COUNT,PLT 304 10^3/uL (150-450); RED BLOOD CELL COUNT 4.87 10^6/uL (4.2-5.4); WHITE BLOOD CELL COUNT,WBC 7.3 10^3/uL (5.0-10.0)
[2024-05-30 23:07] LABS: A/G RATIO 0.85; ALANINE AMINOTRANSFERASE,ALT 17 U/L (14-59); ALBUMIN 3.3 g/dL (3.4-5.0); ALKALINE PHOSPHATASE 106 U/L (46-116); ANION GAP 13.7 mEq/L (7-13); ASPARTATE AMNIOTRANSFERASE,AST 9 U/L (15-37); BILIRUBIN TOTAL 0.3 mg/dL (0.2-1.0); BLOOD UREA NITROGEN,BUN 15 mg/dL (7-18); BUN/CREATININE RATIO 16.9 (No establ ref range); CALCIUM 9.4 mg/dL (8.5-10.1); CARBON DIOXIDE,CO2 28 mmol/L (21-32); CHLORIDE,CL 107 mmol/L (98-107); CREATININE 0.89 mg/dL (0.55-1.02); EST CRCL DRUG DOSING (CG) 55.14 mL/min; ESTIMATED GFR 72 mL/min (>=60); GLUCOSE RANDOM 135 mg/dL (70-99); LIPASE 39 U/L (16-77); MAGNESIUM 2.3 mg/dL (1.8-2.4); POTASSIUM,K 3.7 mmol/L (3.5-5.1); PROTEIN TOTAL,TP 7.2 g/dL (6.4-8.2); SODIUM,NA 145 mmol/L (136-145)
[2024-05-30] MEDS: Lactated Ringers 1,000 ML IV ONE (23:20)
[2024-05-30] MEDS: Aspirin 81 MG Tab.Chew PO ONE (23:20)
[2024-05-30 23:48] LABS: APPEARANCE,URINE CLOUDY (CLEAR); BILIRUBIN,URINE SMALL (NEGATIVE); COLOR,URINE YELLOW (YELLOW); GLUCOSE,URINE NEGATIVE (NEGATIVE); KETONES,URINE TRACE (NEGATIVE); LEUKOCYTE ESTERASE,URINE SMALL (NEGATIVE); NITRITE,URINE POSITIVE (NEGATIVE); OCCULT BLOOD,URINE TRACE-INTACT (NEGATIVE); PROTEIN,URINE 30 (NEGATIVE); UROBILINOGEN,URINE 0.2 mg/dL (0.2-1.0)
[2024-05-30 23:52] LABS: AMPHETAMINES,URINE NEGATIVE (NEGATIVE); BARBITURATES,URINE NEGATIVE (NEGATIVE); BENZODIAZEPINE,URINE NEGATIVE (NEGATIVE); MDMA (ECSTASY), URINE NEGATIVE (NEGATIVE); METHADONE,URINE NEGATIVE (NEGATIVE); METHAMPHETAMINES,URINE NEGATIVE (NEGATIVE); OPIATES,URINE NEGATIVE (NEGATIVE); OXYCODONE,URINE NEGATIVE (NEGATIVE); PHENCYCLIDINE,URINE NEGATIVE (NEGATIVE); TCA,URINE NEGATIVE (NEGATIVE)
[2024-05-30 23:56] LABS: BACTERIA,URINE MANY /HPF (0-FEW/HPF); CALCIUM OXALATE CRYSTALS,URINE MODERATE /HPF (NOT SEEN); EPITHELIAL CELLS,URINE FEW /HPF (NOT SEEN); MUCUS,URINE FEW /LPF (NOT SEEN); WBC,URINE 30-40 /HPF (0-5/HPF)
[2024-05-31] MEDS: Ciprofloxacin in D5W 400 MG in Premix Bag 1 BAG IV ONE (00:28)
[2024-05-31 01:39] VITALS: BP 124/78; PULSE 74
== END 2024-05-31 01:30 | disposition home or self-care (01) ==
LOC: DL.ED 21:59
DX: F41.9 Anxiety disorder, unspecified (principal); R07.2 Precordial pain; N39.0 Urinary tract infection, site not specified; E86.0 Dehydration; K21.9 Gastro-esophageal reflux disease without esophagitis; M19.90 Unspecified osteoarthritis, unspecified site; F17.210 Nicotine dependence, cigarettes, uncomplicated; Z88.0 Allergy status to penicillin; Z91.030 Bee allergy status; Z79.899 Other long term (current) drug therapy
CPT/HCPCS: 36415; 71045; 80053; 80305; 81001; 83690; 83735; 84484; 85025; 87086; 87088; 87186; 93005; 93010; 96361; 96365; 99284; 99285; A9270; J0744; J7120